=== PATIENT | female | born 1995 | race African-American/Black ===

== ENCOUNTER 2019-01-17 13:41 | Emergency (ER) | payer SELFPAY ==
--- NOTE | 2019-01-17 14:14 | ER Document Report ---
HPI - HPI Time Seen by Provider: 01/17/19 14:12 Pain Level: 2 Context: Patient is a 23-year-old female presents emergency department with a chief complaint of urinary symptoms. Patient states she woke up this morning with burning with urination and vaginal pressure. Patient denies vaginal bleeding or discharge. Patient states her last menstrual cycle was 2 years ago as she is on a permanent control. Patient reports mid back pain. Patient reports nausea without vomiting or diarrhea. Patient denies fever. Past Medical History - General Information source: Patient - Social History Smoking Status: Unknown if Ever Smoked Frequency of alcohol use: None Drug Abuse: None Lives with: Family Family History: None - Past Medical History Cardiac Medical History: Reports: None Pulmonary Medical History: Reports: None EENT Medical History: Reports: None Neurological Medical History: Reports: None Endocrine Medical History: Reports: None Renal/ Medical History: Reports: None Malignancy Medical History: Reports: None GI Medical History: Reports: None Musculoskeletal Medical History: Reports None Skin Medical History: Reports None Psychiatric Medical History: Reports: None Traumatic Medical History: Reports: None Infectious Medical History: Reports: None Surgical Hx: Negative Vertical Provider Document - CONSTITUTIONAL Agree With Documented VS: Yes Exam Limitations: No Limitations General Appearance: No Apparent Distress - INFECTION CONTROL TRAVEL OUTSIDE OF THE [place] IN LAST 30 DAYS: No - HEENT HEENT: Atraumatic, Normal ENT Exam, Normocephalic, PERRLA - NECK Neck: Normal Inspection - RESPIRATORY Respiratory: Breath Sounds Normal, No Respiratory Distress - CARDIOVASCULAR Cardiovascular: Regular Rate, Regular Rhythm - GI/ABDOMEN Gastrointestinal: Abdomen Soft, Abdomen Non-Tender, Normal Bowel Sounds - BACK Back: Normal Inspection Notes: No CVA tenderness - NEURO Level of Consciousness: Awake, Alert, Appropriate - DERM Integumentary: Warm, Dry, No Rash - Javon Course - Re-evaluation Re-evalutation: 01/17/19 14:14 Patient is nontoxic-appearing. Will obtain a urinalysis as well as a urine hCG. - Vital Signs Vital signs: Temp Pulse Resp BP Pulse Ox 98.3 F 95 16 126/74 H 99 01/17/19 13:57 01/17/19 13:57 01/17/19 13:57 01/17/19 13:57 01/17/19 13:57 - Laboratory Laboratory results interpreted by me: 08/21/19 16:46 Laboratory 01/17/19 14:40 Urine Color YELLOW Urine Appearance CLOUDY Urine pH 5.0 Ur Specific [place] 1.012 Urine Protein 30 H Urine Glucose (UA) NEGATIVE Urine Ketones NEGATIVE Urine Blood LARGE H Urine Nitrite NEGATIVE Urine Bilirubin NEGATIVE Urine Urobilinogen NEGATIVE Ur Leukocyte Esterase LARGE H Urine WBC (Auto) >182 Urine RBC (Auto) 161 Urine Bacteria (Auto) 1+ Urine WBC Clumps MANY Squamous Epi Cells Auto <1 Urine Mucus (Auto) RARE Urine Ascorbic Acid 20 H Urine HCG, Qual NEGATIVE Discharge - Discharge Clinical Impression: Urinary tract infection Qualifiers: Urinary tract infection type: acute cystitis Hematuria presence: with hematuria Qualified Code(s): N30.01 - Acute cystitis with hematuria Condition: Stable Disposition: HOME, SELF-CARE Instructions: Cephalexin ([facility]), Urinary Anesthetic Agent ([facility]), Urinary Tract Infection ([facility]) Additional Instructions: Continues in the emergency department for urinary symptoms. You do have a urinary tract infection. Your urine test was negative. I am going to place you on oral antibiotics called Kemejia that you need to take twice a day for the next 7 days. I have sent off a urine culture and if this comes back positive for any type of bacteria that is not covered with this antibiotic you will be contacted to change your medication. Please take Tylenol every Profen as needed for pain. You are also being placed on Pyridium. Pyridium is for bladder spasms and discomfort. He can take this 3 times a day for the next 2 days. Please return to the emergency department if you have any fever, severe back pain, uncontrollable vomiting or any other concerning signs or symptoms. Urinary Tract Infection Your evaluation indicates that you have a urinary tract infection. This is due to germs growing in the bladder. This is a common problem. This infection usually responds quickly to antibiotics. Your antibiotic should be taken exactly as prescribed. Drink plenty of fluids -- three to four quarts a day. Occasionally, a bladder anesthetic will be prescribed to help stop the feeling of urgency until the antibiotic has a chance to clear the infection. This may cause your urine to be dark orange. Certain urine infections require a culture. If the doctor obtained a culture, the results will be back in two days. You should call to see if a change in treatment is needed. A repeat urinalysis after you finish treatment is often recommended. The physician will let you know if further testing is required. Call the doctor if you develop fever, chills, flank pain, inability to urinate, or blood in the urine. Prescriptions: Cephalexin Monohydrate [Keflex 500 mg Capsule] 500 mg PO BID 7 Days #14 capsule Phenazopyridine HCl [Pyridium 100 Mg Tablet] 100 mg PO TID 2 Days #6 tablet Forms: Return to Work
[2019-01-17 15:07] LABS: APPEARANCE,URINE CLOUDY; BILIRUBIN,URINE NEGATIVE (NEGATIVE); COLOR,URINE YELLOW; GLUCOSE, URINE NEGATIVE (NEGATIVE); KETONES,URINE NEGATIVE (NEGATIVE); LEUKOCYTE ESTERASE,URINE LARGE (NEGATIVE); NITRITE,URINE NEGATIVE (NEGATIVE); PROTEIN,URINE 30 mg/dL (NEGATIVE); URINE SPECIFIC GRAVITY 1.012; UROBILINOGEN,URINE NEGATIVE mg/dL (<2.0)
[2019-01-17] MEDS ORDERED: CEPHALEXIN 500 MG CAPSULE PO ONE (15:45)
[2019-01-17] MEDS ORDERED: CEPHALEXIN 500 MG CAPSULE ONE (15:59)
[2019-01-17 16:10] VITALS: BP 128/78
== END 2019-01-17 16:10 | disposition home or self-care (01) ==
LOC: EDSEX → ER 13:41
DX: N30.01 Acute cystitis with hematuria (principal); M54.9 Dorsalgia, unspecified; R11.0 Nausea; Z79.3 Long term (current) use of hormonal contraceptives
CPT/HCPCS: 81001; 81025; 87086; 87088; 99283